=== PATIENT | female | born 1955 | race Caucasian/White ===

== ENCOUNTER 2021-06-06 12:18 | Inpatient (IN) | payer MEDICARE, OTHER ==
[~2021-06-06] VITALS: Ht 154.9 cm; Wt 55.8 kg
[2021-06-06 13:16] LABS: BASOPHILS % 0.3 % (0.0-2.0); EOSINOPHILS % 0.5 % (0.0-5.0); HEMATOCRIT. 36.7 % (36.0-48.0); HEMOGLOBIN. 12.1 g/dL (12.0-16.0); LYMPHOCYTES % 20.8 % (20.0-50.0); MEAN CORPUSCULAR HEMOGLOBIN 29.4 pg (28.0-32.0); MEAN CORPUSCULAR VOLUME 89.3 fL (81.0-99.0); MONOCYTES % 6.4 % (2.0-8.0); PLATELET 160 x1000/uL (130-400); RED BLOOD CELL COUNT 4.11 mill/uL (4.2-5.4); RED CELL DISTRIBUTION WIDTH 14.3 % (11.6-14.6)
[2021-06-06 13:22] LABS: CHLORIDE 114 mEq/L (98-107)
[2021-06-06 13:26] LABS: PROTHROMBIN TIME 10.9 sec (9.6-11.0)
[2021-06-06] MEDS ORDERED: IOHEXOL-300 100 ML BOTTLE ONE (15:11)
[2021-06-06] MEDS ORDERED: MORPHINE SULFATE 2 MG/ML CPJ (NOT FOR IM USE) IV ONE (15:15)
[2021-06-06 17:18] LABS: ETHANOL BLOOD < 10 mg/dL
[2021-06-06 17:20] LABS: TOTAL IRON BINDING CAPACITY 306 ug/dL (250-450)
[2021-06-06 17:21] LABS: LDL CHOLESTEROL 85 mg/dL (5-100)
[2021-06-06 17:22] LABS: HDL CHOLESTEROL 52 mg/dL (40-59)
[2021-06-06 17:39] LABS: *AMPHETAMINES SCREEN URINE NEGATIVE (NEGATIVE); *BARBITURATES SCREEN URINE NEGATIVE (NEGATIVE); *BENZODIAZEPINES SCREEN URINE PRESUMTIVE POSITIVE (NEGATIVE); *COCAINE SCREEN URINE NEGATIVE (NEGATIVE); METHADONE URINE SCREEN NEGATIVE (NEGATIVE); OPIATES URINE SCREEN PRESUMTIVE POSITIVE (NEGATIVE)
[2021-06-06 17:39] LABS: FOLIC ACID (FOLATE) SERUM 18.1 ng/mL (>5.38)
[2021-06-06 17:40] LABS: CANNABINOID URINE SCREEN NEGATIVE (NEGATIVE); PHENCYCLIDINE URINE SCREEN NEGATIVE (NEGATIVE)
[2021-06-06] MEDS ORDERED: ZOLPIDEM TARTRATE 5MG TABLET PO PRN (19:15)
[2021-06-06] MEDS ORDERED: CLONIDINE 0.1MG TABLET PO PRN (19:15)
[2021-06-06] MEDS ORDERED: MAGNESIUM/ALUMINUM HYDROXIDE/SIMETHICONE 30ML UDC PO PRN (19:15)
[2021-06-06] MEDS ORDERED: ONDANSETRON HCL 4MG/2ML INJ IV PRN (19:15)
[2021-06-06] MEDS ORDERED: LORAZEPAM 0.5MG TABLET PO PRN (19:15)
[2021-06-06] MEDS ORDERED: ACETAMINOPHEN 325MG TABLET PO PRN ×2 (19:15)
[2021-06-06] MEDS ORDERED: GUAIFENESIN 200MG/10ML SUGAR FREE UDC PO PRN (19:15)
[2021-06-06] MEDS ORDERED: DOCUSATE SODIUM 100MG CAPSULE PO PRN (19:15)
[2021-06-06] MEDS ORDERED: IPRATROPIUM/ALBUTEROL 0.5-3(2.5)MG/3ML NEB NEB PRN (19:15)
[2021-06-06] MEDS ORDERED: NITROGLYCERIN 0.4MG TABLET SL SL PRN (19:15)
[2021-06-06] MEDS: SUCRALFATE 1 G/10 ML UDC PO SCH (21:00)
[2021-06-06] MEDS ORDERED: DEXTROSE 50% WATER 50ML SYRINGE IV PRN (21:15)
[2021-06-07] MEDS: FAMOTIDINE 20MG TABLET PO SCH ×3 (03:03→21:26)
[2021-06-07] MEDS: KETOROLAC 15MG/ML VIAL IV PRN (03:03)
[2021-06-07] MEDS: AMLODIPINE 10MG TABLET PO SCH ×2 (03:03→09:04)
[2021-06-07 04:25] LABS: BASOPHILS % 0.6 % (0.0-2.0); EOSINOPHILS % 0.5 % (0.0-5.0); HEMATOCRIT. 41.4 % (36.0-48.0); HEMOGLOBIN. 13.6 g/dL (12.0-16.0); LYMPHOCYTES % 16.5 % (20.0-50.0); MEAN CORPUSCULAR HEMOGLOBIN 29.7 pg (28.0-32.0); MEAN CORPUSCULAR VOLUME 90.3 fL (81.0-99.0); MEAN PLATELET VOLUME 11.1 fl (7.4-10.4); MONOCYTES % 8.1 % (2.0-8.0); NEUTROPHILS % 74.3 % (40.0-76.0); PLATELET 171 x1000/uL (130-400); RED BLOOD CELL COUNT 4.58 mill/uL (4.2-5.4); RED CELL DISTRIBUTION WIDTH 14.3 % (11.6-14.6)
[2021-06-07 04:31] LABS: CHLORIDE 106 mEq/L (98-107)
[2021-06-07] MEDS: BLOOD SUGAR DIAGNOSTIC STRIP TEST SCH ×3 (06:32→21:20)
[2021-06-07] MEDS: INSULIN LISPRO 100 UNITS/ML SUBCUT SCH ×3 (06:38→21:27)
[2021-06-07 10:35] VITALS: BP_SYST 114; BP_DIAS 73; BP_DIAS 74
[2021-06-07 12:00] VITALS: BP 138/73
[2021-06-07] MEDS ORDERED: CLOP-31 PO (13:22)
[2021-06-07] MEDS ORDERED: ASPI-1406 PO (13:22)
[2021-06-07] MEDS ORDERED: METF-416 PO (13:22)
[2021-06-07 16:00] VITALS: BP 140/76
[2021-06-07 20:35] VITALS: BP 134/62
[2021-06-07] MEDS: SUCRALFATE 1 G/10 ML UDC PO SCH (21:26)
[2021-06-08] VITALS: BP 125/74
[2021-06-08 04:00] VITALS: BP 114/57
[2021-06-08] MEDS: BLOOD SUGAR DIAGNOSTIC STRIP TEST SCH ×4 (07:33→21:36)
[2021-06-08] MEDS: SUCRALFATE 1 G/10 ML UDC PO SCH ×4 (07:55→21:34)
[2021-06-08] MEDS: INSULIN LISPRO 100 UNITS/ML SUBCUT SCH ×4 (07:56→21:35)
[2021-06-08 08:00] VITALS: BP 143/72
[2021-06-08] MEDS: FAMOTIDINE 20MG TABLET PO SCH ×2 (08:00→21:34)
[2021-06-08] MEDS: AMLODIPINE 10MG TABLET PO SCH (08:00)
[2021-06-08] MEDS: TRAMADOL 50MG TABLET PO PRN (08:00)
[2021-06-08 12:00] VITALS: BP 108/56
[2021-06-08 16:00] VITALS: BP 105/61
[2021-06-08 19:30] LABS: BASOPHILS % 0.3 % (0.0-2.0); EOSINOPHILS % 1.2 % (0.0-5.0); LYMPHOCYTES % 16.6 % (20.0-50.0); MEAN CORPUSCULAR HEMOGLOBIN 30.1 pg (28.0-32.0); MEAN CORPUSCULAR VOLUME 90.2 fL (81.0-99.0); MEAN PLATELET VOLUME 11.6 fl (7.4-10.4); MONOCYTES % 7.6 % (2.0-8.0); NEUTROPHILS % 74.3 % (40.0-76.0); PLATELET 166 x1000/uL (130-400); RED BLOOD CELL COUNT 4.33 mill/uL (4.2-5.4); RED CELL DISTRIBUTION WIDTH 14.1 % (11.6-14.6)
[2021-06-08 20:00] VITALS: BP 103/55
[2021-06-08] MEDS: KETOROLAC 15MG/ML VIAL IV PRN (21:34)
[2021-06-09] VITALS (7 sets, daily range): BP systolic 90–128; BP diastolic 54–71
[2021-06-09] MEDS: BLOOD SUGAR DIAGNOSTIC STRIP TEST SCH ×3 (06:41→17:40)
[2021-06-09] MEDS: SUCRALFATE 1 G/10 ML UDC PO SCH ×2 (06:41→12:43)
[2021-06-09] MEDS: INSULIN LISPRO 100 UNITS/ML SUBCUT SCH ×2 (07:20→12:42)
[2021-06-09] MEDS: AMLODIPINE 10MG TABLET PO SCH (08:57)
[2021-06-09] MEDS: FAMOTIDINE 20MG TABLET PO SCH (08:59)
[2021-06-09] MEDS: TRAMADOL 50MG TABLET PO PRN (16:24)
== END 2021-06-09 18:00 | disposition home health service (06) | DRG 384 ==
LOC: ER 12:18 → MICUSO 15:41 → EDBEDREQ 15:47 → SUPCPDRO 19:09 → 7WST 06-07 11:10
PROVIDERS: ADMIT Internal Medicine; ATTEND Internal Medicine
DX: S30.1XXA Contusion of abdominal wall, initial encounter (principal); E44.0 Moderate protein-calorie malnutrition; E83.51 Hypocalcemia; I10 Essential (primary) hypertension; X58.XXXA Exposure to other specified factors, initial encounter; Z86.73 Personal history of transient ischemic attack (TIA), and cerebral infarction without residual deficits; Z79.4 Long term (current) use of insulin; Z79.899 Other long term (current) drug therapy; Z85.01 Personal history of malignant neoplasm of esophagus; Z87.11 Personal history of peptic ulcer disease; Z90.710 Acquired absence of both cervix and uterus; Z68.23 Body mass index [BMI] 23.0-23.9, adult; Y93.89 Activity, other specified; Y92.89 Other specified places as the place of occurrence of the external cause; Y99.8 Other external cause status; E11.65 Type 2 diabetes mellitus with hyperglycemia
CPT/HCPCS: 36415; 74177; 80053; 80061; 80305; 80320; 82607; 82746; 82962; 83036; 83540; 83550; 83735; 84100; 84439; 84443; 85025; 86850; 86900; 93970; 97161; 97166; 99285; J1815; J1885; J2270; J2405; Q9967; G0480